=== PATIENT | female | born 1950 | race Two or more races ===

== ENCOUNTER 2016-11-07 17:42 | Emergency (ER) | payer OTHER, MEDICAID ==
[~2016-11-07] VITALS: Ht 160 cm; Wt 89.8 kg
[2016-11-07] MEDS ORDERED: FLUORESCEIN SOD 1 MG TEST STRIP LEFTEYE ONE (19:15)
[2016-11-07] MEDS ORDERED: TETRACAINE HCL 0.5% OPTH(EYE) SOLN 4ML LEFTEYE ONE (19:15)
[2016-11-07 19:32] VITALS: BP 153/73
== END 2016-11-07 19:55 | disposition home or self-care (01) ==
LOC: ER 17:47
DX: H10.9 Unspecified conjunctivitis (principal); E11.9 Type 2 diabetes mellitus without complications; I10 Essential (primary) hypertension; E78.5 Hyperlipidemia, unspecified; M79.7 Fibromyalgia; Z88.1 Allergy status to other antibiotic agents

== ENCOUNTER 2018-05-24 12:58 | Emergency (ER) | payer OTHER, MEDICAID ==
[~2018-05-24] VITALS: Ht 165.1 cm; Wt 82.1 kg
[2018-05-24] MEDS ORDERED: PANTOPRAZOLE 40 MG TAB PO ONE (13:15)
[2018-05-24 13:45] LABS: Urine Bacteria NONE SEEN /hpf (None Seen); Urine Blood Negative /uL (Negative); Urine Mucus FEW (None Seen); Urine WBC 2 /hpf (0 - 5)
[2018-05-24] MEDS ORDERED: LORazepam 2MG/ML-1ML VIAL IV ONE (13:45)
[2018-05-24 13:54] LABS: Basophils # (auto) 0.1 uL; Basophils % (auto) 0.4 % (0.0-2.0); Eosinophils # (auto) 0 uL; Eosinophils % (auto) 0.1 % (0.0-7.0); Hematocrit 41.6 % (36.0-46.0); Hemoglobin 13.8 g/dL (12.2-16.2); Lymphocytes # (auto) 1.2 uL; Lymphocytes % (auto) 9.1 % (10.0-50.0); Mean Corpuscular Hemoglobin 29.9 pg (28.0-32.0); Mean Corpuscular Hgb Conc. 33.2 g/dL (32.0-36.0); Mean Corpuscular Volume 90.1 fL (80.0-100.0); Monocytes # (auto) 0.4 uL; Monocytes % (auto) 2.8 % (0.0-12.0); Neutrophils # (auto) 11.5 uL; Neutrophils % (auto) 87.6 % (37.0-80.0); Platelet Count (auto) 258 10^3/uL (140-450); Red Blood Cells 4.61 10^6/uL (4.0-5.20); Red Cell Distribution Width 13.4 % (11.8-14.3); White Blood Cell 13.1 10^3/uL (4.4-10.8)
[2018-05-24 14:09] LABS: Albumin 3.9 g/dL (3.4-5.0); Amylase 31 U/L (25-115); Anion Gap 8 (5-15); Blood Urea Nitrogen 14 mg/dL (7-18); Calcium 8.5 mg/dL (8.5-10.1); Carbon Dioxide 25 mmol/L (21-32); Chloride 106 mmol/L (98-107); Glucose 184 mg/dL (74-106); Lipase 150 U/L (73-393); Magnesium 1.8 mg/dL (1.6-2.6); Potassium 3.6 mmol/L (3.5-5.1); Sodium 139 mmol/L (136-145)
[2018-05-24 14:10] VITALS: BP 138/73
[2018-05-24 14:15] LABS: Alanine Aminotransferase 35 U/L (13-56); Alkaline Phosphatase 113 U/L (45-117); Aspartate Aminotransferase 21 U/L (15-37); BUN/Creatinine Ratio 17.7; Bilirubin, Total 0.6 mg/dL (0.2-1.0); GFR African American > 60 mL/min; GFR Non-African American > 60 mL/min; Total Protein 7.8 g/dL (6.4-8.2)
[2018-05-24] MEDS ORDERED: metroNIDAZOLE 500MG/100ML 100 ML IV ONE (15:15)
[2018-05-24] MEDS ORDERED: KETOROLAC TROMETH 30 MG/ML 1ML VIAL IV ONE (15:45)
== END 2018-05-24 16:38 | disposition home or self-care (01) ==
LOC: EDBD 12:58 → ER 13:02
DX: K64.9 Unspecified hemorrhoids (principal); E11.9 Type 2 diabetes mellitus without complications; E78.5 Hyperlipidemia, unspecified; I10 Essential (primary) hypertension; Z88.8 Allergy status to other drugs, medicaments and biological substances
CPT/HCPCS: 36415; 74176; 80053; 81001; 82150; 83690; 83735; 84484; 85025; 93005; 96374; 96375; 99284; J1885; J2060; J3490; J7030

== ENCOUNTER 2019-02-10 21:53 | Emergency (ER) | payer OTHER, MEDICAID ==
[~2019-02-10] VITALS: Ht 160 cm; Wt 83.5 kg
[2019-02-11] MEDS ORDERED: TRIAMCINOLONE 40MG/ML 1ML VIAL IM ONE (04:00)
[2019-02-11 04:11] VITALS: BP 154/79
[2019-02-11] MEDS ORDERED: HYDROcodone-ACET 10/325MG TAB PO ONE (04:15)
[2019-02-11] MEDS ORDERED: BACLOFEN 10 MG TAB PO ONE (04:15)
== END 2019-02-11 04:30 | disposition home or self-care (01) ==
LOC: ER 22:03
DX: S33.5XXA Sprain of ligaments of lumbar spine, initial encounter (principal); M54.16 Radiculopathy, lumbar region; E11.9 Type 2 diabetes mellitus without complications; E78.5 Hyperlipidemia, unspecified; I10 Essential (primary) hypertension; Z88.6 Allergy status to analgesic agent; X58.XXXA Exposure to other specified factors, initial encounter; Y93.89 Activity, other specified; Y99.8 Other external cause status; Y92.89 Other specified places as the place of occurrence of the external cause
CPT/HCPCS: 20552; 72100; 99284; J3301

== ENCOUNTER 2023-08-23 20:37 | Inpatient (IN) | payer OTHER, MEDICAID ==
[~2023-08-23] VITALS: Ht 160 cm; Wt 88.5 kg
[2023-08-23 21:59] LABS: Urine Bacteria None Seen /hpf (None Seen)
[2023-08-23 22:14] LABS: Urine Blood Negative /uL (Negative); Urine Clarity Clear (Clear); Urine Color Yellow (Yellow); Urine Mucus FEW (None Seen); Urine Protein, UAD Negative (Negative); Urine Specific Gravity 1.025 (1.001-1.035); Urine Urobilinogen Normal (Negative); Urine WBC 3 /hpf (0 - 5)
[2023-08-24 04:05] LABS: Basophils # (auto) 0 10 ^3/uL (0-0.2); Basophils % (auto) 0.6 % (0.0-2.0); Eosinophils # (auto) 0.2 10 ^3/uL (0-0.8); Eosinophils % (auto) 2.9 % (0.0-7.0); Hematocrit 38.1 % (36.0-46.0); Hemoglobin 12.6 g/dL (12.2-16.2); Lymphocytes # (auto) 2.9 10 ^3/uL (0.4-5.4); Lymphocytes % (auto) 36.9 % (10.0-50.0); Mean Corpuscular Hemoglobin 29.9 pg (28.0-32.0); Mean Corpuscular Hgb Conc. 33.2 g/dL (32.0-36.0); Mean Corpuscular Volume 90.3 fL (80.0-100.0); Monocytes # (auto) 0.5 10 ^3/uL (0-1.3); Monocytes % (auto) 6.7 % (0.0-12.0); Neutrophils # (auto) 4.2 10 ^3/uL (1.6-8.6); Neutrophils % (auto) 52.9 % (37.0-80.0); Nucleated Red Blood Cells % 0.1 %; Red Blood Cells 4.22 10^6/uL (4.0-5.20); Red Cell Distribution Width 13.1 % (11.8-14.3); White Blood Cell 7.9 10^3/uL (4.4-10.8)
[2023-08-24 04:23] LABS: Alanine Aminotransferase 25 U/L (7-40); Albumin 4.3 g/dL (3.2-4.8); Alkaline Phosphatase 98 U/L (46-116); Anion Gap 4 (5-15); Aspartate Aminotransferase 15 U/L (13-40); BUN/Creatinine Ratio 17.1 (10.0-20.0); Bilirubin, Total 0.4 mg/dL (0.2-1.0); Blood Urea Nitrogen 13 mg/dL (9-23); Calcium 9.5 mg/dL (8.7-10.4); Carbon Dioxide 30 mmol/L (20-30); Chloride 105 mmol/L (98-107); Glucose 144 mg/dL (74-106); Potassium 3.6 mmol/L (3.5-5.1); Sodium 139 mmol/L (136-145)
[2023-08-24] MEDS: ONDANSETRON HCL 4 MG/2 ML VIAL IV ONE (07:21)
[2023-08-24] MEDS: SODIUM CHLORIDE 0.9% 500 ML IVB ONE (07:29)
[2023-08-24 08:03] VITALS: RESP 18; O2SAT 98
[2023-08-24] MEDS ORDERED: cefTRIAXone 1GM/50ML D5W 50 ML IV ONE (09:00)
[2023-08-24] MEDS ORDERED: MORPHINE SULFATE INJ 2 MG/ml SYRG IV PRN (09:00)
[2023-08-24] MEDS ORDERED: ONDANSETRON HCL 4 MG/2 ML VIAL IV PRN (09:00)
[2023-08-24] MEDS: metroNIDAZOLE 500MG/100ML 100 ML IV ONE (09:00)
[2023-08-24] MEDS: SODIUM CHLORIDE 0.9% 1,000 ML IV SCH (09:00)
[2023-08-24] MEDS ORDERED: DEXTROSE (50%) 50ML SYRG IV PRN (09:00)
[2023-08-24] MEDS ORDERED: DOCUSATE SOD 100 MG CAP PO PRN (09:00)
[2023-08-24] MEDS: PANTOPRAZOLE 40 MG/10 ML VIAL INJ IV ONE (09:00)
[2023-08-24 09:54] LABS: Hematocrit 37.5 % (36.0-46.0); Hemoglobin 12.4 g/dL (12.2-16.2)
[2023-08-24 11:02] LABS: Prothrombin Time 10.5 sec (9.3-11.8)
[2023-08-24] MEDS: InsuLIN REG 1unit/0.01ml Soln (100units/ml) SC SCH (12:00)
[2023-08-24] MEDS: ACCU-CHEK COMFORT CURVE STRIP VI SCH (12:00)
[2023-08-24 20:00] VITALS: BP 142/78; PULSE 78; PULSE 89; RESP 20; TEMP 98.8; O2SAT 98
[2023-08-24 21:00] VITALS: BP 143/67; PULSE 73; RESP 18; TEMP 97.7; O2SAT 97
[2023-08-24] MEDS: metroNIDAZOLE 500MG/100ML 100 ML IV SCH (21:40)
[2023-08-24 22:32] LABS: Hematocrit 36.8 % (36.0-46.0)
[2023-08-24] MEDS: cefTRIAXone 1GM/50ML D5W 50 ML IV SCH (23:08)
[2023-08-25] VITALS (8 sets, daily range): BP systolic 107–135; BP diastolic 60–71; PULSE 67–87; RESP 16–17; TEMP 97.5–98.4; O2SAT 92–98
[2023-08-25 05:49] LABS: Basophils # (auto) 0 10 ^3/uL (0-0.2); Basophils % (auto) 0.7 % (0.0-2.0); Eosinophils # (auto) 0.2 10 ^3/uL (0-0.8); Eosinophils % (auto) 3.2 % (0.0-7.0); Hematocrit 34.7 % (36.0-46.0); Hemoglobin 11.5 g/dL (12.2-16.2); Lymphocytes # (auto) 2.4 10 ^3/uL (0.4-5.4); Lymphocytes % (auto) 35.6 % (10.0-50.0); Mean Corpuscular Volume 90.8 fL (80.0-100.0); Monocytes # (auto) 0.6 10 ^3/uL (0-1.3); Monocytes % (auto) 8.6 % (0.0-12.0); Neutrophils # (auto) 3.6 10 ^3/uL (1.6-8.6); Neutrophils % (auto) 51.9 % (37.0-80.0); Nucleated Red Blood Cells % 0.1 %; Red Blood Cells 3.82 10^6/uL (4.0-5.20); White Blood Cell 6.8 10^3/uL (4.4-10.8)
[2023-08-25 06:08] LABS: Alanine Aminotransferase 22 U/L (7-40); Alkaline Phosphatase 79 U/L (46-116); Anion Gap 6 (5-15); Blood Urea Nitrogen 8 mg/dL (9-23); Calcium 8.9 mg/dL (8.7-10.4); Carbon Dioxide 28 mmol/L (20-30); Chloride 109 mmol/L (98-107); Glucose 102 mg/dL (74-106); Potassium 3.7 mmol/L (3.5-5.1); Sodium 143 mmol/L (136-145)
[2023-08-25 06:09] LABS: Albumin 3.4 g/dL (3.2-4.8); Aspartate Aminotransferase 16 U/L (13-40)
[2023-08-25 06:10] LABS: Bilirubin, Total 0.4 mg/dL (0.2-1.0); Total Protein 5.8 g/dL (5.7-8.2)
[2023-08-25] MEDS: PANTOPRAZOLE 40 MG/10 ML VIAL INJ IV SCH (09:05)
[2023-08-25 10:29] LABS: Hematocrit 35.5 % (36.0-46.0); Hemoglobin 11.7 g/dL (12.2-16.2)
[2023-08-25] MEDS ORDERED: ACETAMINOPHEN 325 MG TAB PO PRN (14:30)
[2023-08-25] MEDS: InsuLIN REG 1unit/0.01ml Soln (100units/ml) SC SCH (17:00)
[2023-08-25] MEDS: ACCU-CHEK COMFORT CURVE STRIP VI SCH (17:49)
[2023-08-25 22:19] LABS: Hemoglobin 8.8 g/dL (12.2-16.2)
[2023-08-25 22:21] LABS: Hematocrit 29.6 % (36.0-46.0)
[2023-08-26 05:00] VITALS: BP 149/68; PULSE 65; RESP 17; TEMP 98; O2SAT 94
[2023-08-26 06:42] LABS: Basophils # (auto) 0 10 ^3/uL (0-0.2); Basophils % (auto) 0.7 % (0.0-2.0); Eosinophils # (auto) 0.2 10 ^3/uL (0-0.8); Eosinophils % (auto) 3.2 % (0.0-7.0); Hematocrit 33.9 % (36.0-46.0); Hemoglobin 11.3 g/dL (12.2-16.2); Lymphocytes # (auto) 2.2 10 ^3/uL (0.4-5.4); Lymphocytes % (auto) 37.4 % (10.0-50.0); Mean Corpuscular Hemoglobin 30.1 pg (28.0-32.0); Mean Corpuscular Hgb Conc. 33.3 g/dL (32.0-36.0); Mean Corpuscular Volume 90.6 fL (80.0-100.0); Monocytes # (auto) 0.6 10 ^3/uL (0-1.3); Monocytes % (auto) 10.7 % (0.0-12.0); Neutrophils # (auto) 2.8 10 ^3/uL (1.6-8.6); Nucleated Red Blood Cells % 0.3 %; Red Blood Cells 3.74 10^6/uL (4.0-5.20); Red Cell Distribution Width 13.4 % (11.8-14.3); White Blood Cell 5.9 10^3/uL (4.4-10.8)
[2023-08-26 06:48] LABS: Alanine Aminotransferase 20 U/L (7-40); Albumin 3.4 g/dL (3.2-4.8); Alkaline Phosphatase 68 U/L (46-116); Anion Gap 5 (5-15); Aspartate Aminotransferase 16 U/L (13-40); Bilirubin, Total 0.6 mg/dL (0.2-1.0); Calcium 8.9 mg/dL (8.7-10.4); Carbon Dioxide 30 mmol/L (20-30); Chloride 109 mmol/L (98-107); Glucose 112 mg/dL (74-106); Magnesium 1.8 mg/dL (1.6-2.6); Potassium 3.8 mmol/L (3.5-5.1); Sodium 144 mmol/L (136-145); Total Protein 5.6 g/dL (5.7-8.2)
[2023-08-26 06:55] LABS: BUN/Creatinine Ratio 8.5 (10.0-20.0); Blood Urea Nitrogen < 5 mg/dL (9-23)
[2023-08-26 08:05] VITALS: BP 141/61; PULSE 65; RESP 18; TEMP 98.2; O2SAT 95
[2023-08-26] MEDS ORDERED: METR-344 PO (12:02)
[2023-08-26] MEDS ORDERED: CIPR-173 PO (12:02)
[2023-08-26 12:05] VITALS: BP 120/69; PULSE 69; RESP 18; TEMP 98.3; O2SAT 97
== END 2023-08-26 15:37 | disposition home or self-care (01) | DRG 378 ==
LOC: ER 20:37 → OVERFLOW 08-24 10:25 → TELE-E-ADS 08-24 14:35 → WEST WING 08-24 18:39
PROVIDERS: ADMIT Nurse Practitioner Family; ATTEND Internal Medicine Geriatric Medicine
DX: K57.31 Diverticulosis of large intestine without perforation or abscess with bleeding (principal); N39.0 Urinary tract infection, site not specified; E11.65 Type 2 diabetes mellitus with hyperglycemia; I10 Essential (primary) hypertension; K80.20 Calculus of gallbladder without cholecystitis without obstruction; K40.90 Unilateral inguinal hernia, without obstruction or gangrene, not specified as recurrent; E78.5 Hyperlipidemia, unspecified; K21.9 Gastro-esophageal reflux disease without esophagitis; F41.9 Anxiety disorder, unspecified; Z88.1 Allergy status to other antibiotic agents; Z79.899 Other long term (current) drug therapy; Z83.3 Family history of diabetes mellitus
CPT/HCPCS: 36415; 74176; 80053; 81001; 82962; 83735; 85014; 85018; 85025; 85610; 86850; 86900; 86901; 87086; 96360; C9113; G0378; J1815; J3490

== ENCOUNTER 2025-01-31 16:31 | Inpatient (IN) | payer MEDICARE, MEDICAID ==
[~2025-01-31] VITALS: Ht 160 cm; Wt 83.4 kg
[~2025-01-31 16:31] MED LIST: ALBU108A5 INH; CETI-120 PO; CIPR-173 PO; EZET1TAB90 PO; FLUT50SP NAS; LANS30CA58 PO; LISI10TA34 PO; METR-344 PO; NABU-72 PO; SEMA2INJ3 SC; TIMO0.5S32 EACHEYE
[2025-01-31 16:45] VITALS: PULSE 68; RESP 15; O2SAT 98
--- NOTE | 2025-01-31 16:49 | ED.PDOC ---
GI ASSESSMENT HPI Comments Discharge summary from 08/26/23 Abdominal pain and rectal bleeding most likely due to diverticulosis Hypertension Type 2 diabetes GERD History of diverticulosis HPI: 74 year old female presents to the ED with a chief complaint of abdominal pain onset today (01/31/25). Patient states she came to ED to visit her son, who is admitted to [facility], began experiencing suprapubic pain, described as a "bubbling" sensation. Patient states she went to restroom, had a bowel movement, shortly after began experiencing nausea, had small episode of emesis. Patient was hypotensive with BP 80s systolic, blood glucose was 225. Patient states she has history of Diverticulitis, pain does not feel similar to previous episodes. During assessment BP has improved. Denies chest pain, shortness of breath, dysuria, hematuria, hematemesis, melena, blood in stool, fever, chills. No other symptoms or modifying factors present at this time. Initial Vitals BP: HR: RR: O2 Sat: Temp: Past Medical history: HTN, DM, diverticulitis, GERD, HLD Past Surgical history: Salivary gland removal Medications: ozempic Social History: Denies smoking, ETOH, and drug use. Allergies: Keflex, cephalexin palmer, haily: 74 y/o F HPI: Poor Historian. REVIEW OF SYSTEMS: CONSTITUTIONAL: Denies acute: fever, diaphoresis, chills, HEAD: Denies acute: headache, photophobia Eyes: Denies acute: Double vision, vision loss, eye pain, eye discharge. EARS: Denies acute: tinnitus, hearing loss, ear discharge, ear pain, THROAT: Denies acute: sore throat, swelling, difficulty swallowing , pain with swallowing, change in voice. NECK: Denies acute: neck pain, neck swelling, stiff neck. HEART: Denies acute : chest pain, palpitations, LUNGS: Denies acute: SOB, wheezing, cough, hemoptysis ABDOMEN: Denies acute: diarrhea, melena , hematemesis, hematochezia SKIN: Denies acute: rash, redness, lesions, itchiness. EXTREMITIES: Denies acute: calf pain, numbness, tingling, weakness, denies pain in extremity. Denies acute: Low back pain. Neuro: Denies acute: focal neurological deficit, motor or sensory focal neurological deficit, tremors, seizure like activity, confusion, dizziness, change in mental status, loss of bowel or bladder function, cauda equina like symptoms. : Denies acute: dysuria, hematuria, flank pain, increase in urinary frequency. PSYCH: Denies acute: hallucination, suicidal ideation, homicidal ideation. FEMALE: Denies acute: abnormal vaginal bleeding, foul odor, unusual discharge. PHYSICAL EXAM: General: ----moderate----acute distress, awake and alert. Slightly diaphoretic Blood pressure has already improved by the time of my evaluation. Head: normocephalic, atraumatic. Neck: supple, trachea is midline, no swelling. Throat: Normal phonation. Eyes:, no erythema, no purulent discharge, no proptosis, no icterus. Heart: regular rate, regular rhythm, no significant murmur appreciated. Lungs: no apparent respiratory distress, Able to speak in full sentences. No wheezing, no rhonchi, no crackles. No stridors Clear to auscultation bilaterally. Abdomen: non tender to palpation, non distended, soft, no guarding, no rebound, + bowel sounds. Neuro: Awake, Alert, oriented to name, self, situation, follows commands GCS=15. Speech is normal. Skin: no petechia, no purpura, no cyanosis, non-pale, not jaundice. Lower extremities: --trace bilateral- Pitting edema no deformity, no focal swelling, no calf TTP. Makes eye contact. moves all four extremities. Face: no apparent facial droop. No nuchal rigidity, Kernig's sign, Brudzinski's sign, no meningeal signs. ED COURSE: DISCLAIMER: This medical document was created using an electronic medical record system with voice recognition software and computerized dictation system. Although this document has been carefully reviewed, there might still be some phonetic and typographical errors. Occasional wrong-word or "sound-alike" substitutions may have occurred due to the inherent limitations of voice recognition software. These areas are purely typographical due to imperfections of the software programs and do not reflect any compromise in the patient's medical care. Please read the chart carefully and recognize, using context, where these substitutions have occurred. Chief Complaint: Abdominal Pain Time Seen by MD: 16:40 Primary Care Provider: alfred Reviewed Notes: Medications, Allergies Allergies: Coded Allergies: Cephalexin (Verified Allergy, Unknown, NAUSEA VOMITING, 08/24/23) Home Meds Active Scripts Ciprofloxacin Hcl (Cipro) 500 Mg Tab, 1 TAB PO BID, #20 TAB Prov:DEMETRICE CHAN MD 08/26/23 Metronidazole (Flagyl) 500 Mg Tab, 500 MG PO TID for 10 Days, #30 TAB Prov:DEMETRICE CHAN MD 08/26/23 Information Source: Patient Mode of Arrival: Ambulatory Timing: Hours Duration: Since onset Prehospital treatment: None Past Medical History PAST MEDICAL HISTORY: DM, High Lipids, HTN Surgical History: Denies all surgeries 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 Was a procedure done?: No X-Ray, Labs, Meds, VS Vital Signs Date Time Temp Pulse Resp B/P (MAP) Pulse Ox O2 Delivery O2 Flow Rate FiO2 01/31/25 16:32 98.6 72 18 89/46 99 98.6 01/31/25 16:31 71 Lab Test 01/31/25 17:35 01/31/25 16:33 Range/Units White Blood Count 11.0 H 4.4-10.8 10^3/uL Red Blood Count 4.51 4.0-5.20 10^6/uL Hemoglobin 13.9 12.2-16.2 g/dL Hematocrit 42.0 36.0-46.0 % Mean Corpuscular Volume 93.2 80.0-100.0 fL Mean Corpuscular Hemoglobin 30.9 28.0-32.0 pg Mean Corpuscular Hemoglobin Concent 33.1 32.0-36.0 g/dL Red Cell Distribution Width 12.7 11.8-14.3 % Platelet Count 261 140-450 10^3/uL Mean Platelet Volume 8.0 6.9-10.8 fL Neutrophils (%) (Auto) 74.5 37.0-80.0 % Lymphocytes (%) (Auto) 19.0 10.0-50.0 % Monocytes (%) (Auto) 5.5 0.0-12.0 % Eosinophils (%) (Auto) 0.5 0.0-7.0 % Basophils (%) (Auto) 0.5 0.0-2.0 % Neutrophils # (Auto) 8.2 1.6-8.6 10 ^3/uL Lymphocytes # (Auto) 2.1 0.4-5.4 10 ^3/uL Monocytes # (Auto) 0.6 0-1.3 10 ^3/uL Eosinophils # (Auto) 0.1 0-0.8 10 ^3/uL Basophils # (Auto) 0.1 0-0.2 10 ^3/uL Nucleated Red Blood Cells 0.1 % Sodium Level Pending Potassium Level Pending Chloride Level Pending Carbon Dioxide Level Pending Anion Gap Pending Blood Urea Nitrogen Pending Creatinine Pending Glomerular Filtration Rate Calc Pending BUN/Creatinine Ratio Pending Serum Glucose Pending Lactic Acid Level Pending Calcium Level Pending Total Bilirubin Pending Aspartate Amino Transferase (AST) Pending Alanine Aminotransferase (ALT) Pending Alkaline Phosphatase Pending Troponin I High Sensitivity Pending B-Type Natriuretic Peptide Pending Total Protein Pending Albumin Pending Lipase Pending Urine Color Light-yellow Yellow Urine Clarity Clear Clear Urine pH 6.5 5.0-9.0 Urine Specific Superior 1.016 1.001-1.035 Urine Protein Trace H Negative Urine Ketones Negative Negative Urine Blood Negative Negative /uL Urine Nitrite Negative Negative Urine Bilirubin Negative Negative Urine Urobilinogen Normal Negative mg/dL Urine Leukocyte Esterase Negative Negative /uL Urine RBC <1 0 - 4 /hpf Urine Microscopic WBC 5 0-5 /HPF Urine Squamous Epithelial Cells Few <5 /hpf Urine Bacteria None seen None Seen /hpf Urine Yeast (Budding) Occasional None Seen /hpf Urine Glucose Normal Normal mg/dL Current Medications Medications (Trade) Dose Ordered Sig/Griselda Route Start Time Stop Time Status Last Admin Sodium Chloride 1,000 ml @ 1,000 mls/hr Q1H ONCE IV 01/31/25 16:45 01/31/25 17:44 DC 01/31/25 17:51 Ondansetron HCl (Zofran) 8 mg ONCE ONCE IV 01/31/25 16:45 01/31/25 16:46 DC 01/31/25 17:51 [facility] [place] [address] [facility] [address] Ph: [phone] DIAGNOSTIC IMAGING Diagnostic Imaging Report : [id number] Signed PATIENT: HAILY PALMER ACCT: [id number] UNIT: [id number] : 1950 LOC: ER ROOM / BED: / AGE / SEX: 74 / F ADM STATUS: REG ER SERVICE [id number] ORDERING PHYSICIAN: SHEREE BLANCA DO PROCEDURE(s): ABPL - CT AB PEL WO CON-NO ORAL OR IV REASON: n/v/abd pain low BP ORDER NUMBER(s): [id number], ACCESSION NUMBER(s): [id number] COMPUTERIZED TOMOGRAPHY ABDOMEN AND PELVIS WITHOUT CONTRAST REASON FOR EXAM: n/v/abd pain low BP COMPARISON: CT CT AB PEL WO CON-NO ORAL OR IV on DOS: 08/24/23 TECHNIQUE: Spiral scans were acquired from the diaphragm to the symphysis pubis without intravenous contrast administration. 2-D coronal and sagittal reformatted images were provided. Radiation optimization: All CT scans at this facility use at least one of these dose optimization techniques: Automated exposure control mA and/or kV adjustment per patient size (includes targeted exams where dose is matched to clinical indication) or iterative reconstruction. RADIATION DOSE: CTDI: 13.17 mGy DLP: 662.47 mGy-cm FINDINGS: The visualized lung bases are grossly clear. There is no pleural effusion. There is no pericardial effusion. The spleen is not enlarged. The liver is normal in size and contour. Evaluation of the abdominal organs is suboptimal in the absence of intravenous contrast. There are a few small gallstones. There is no pericholecystic edema. Unenhanced appearance of the pancreas is grossly unremarkable. There is a small diverticulum off the 2nd part of the duodenum. The adrenal glands are normal. The kidneys are similar in size. There is no hydronephrosis of either kidney. There is no abdominal aortic aneurysm. There is moderate atherosclerosis. The urinary bladder is unremarkable. The uterus and ovaries are within normal limits for age. No free fluid is identified in the abdomen or pelvis. No pathologic lymphadenopathy is identified by size criteria. There is moderate descending and sigmoid diverticulosis. There is subtle inflammatory stranding adjacent to the distal descending colon consistent with acute diverticulitis. The colonic stool burden is small. The appendix is normal. There is no pathologic distention of the small bowel. No acute osseous abnormality is identified. There are degenerative changes in the lower lumbar spine. IMPRESSION: Acute diverticulitis at the distal descending colon. Normal appendix. ATED BY: DEMETRI OATES MD DICTATED DATE/TIME: 01/31/251753 SIGNED BY: DEMETRI OATES MD SIGNED DATE/TIME: 01/31/251753 CC: Time of 1ST Reevaluation: 17:10 Departure 1 Departure Time of Disposition: 18:07 Impression: Primary Impression: Acute diverticulitis Additional Impression: Hypotensive episode Disposition: ADMITTED INPATIENT Admit to: [facility] Condition: Guarded Discharged With: Self Critical Care Note Critical Care Time?: No I personally scribed for SHEREE BLANCA DO ([email or web address]) on 01/31/25 at 16:49. Electronically submitted by Malou Noyola ([email or web address]). I personally scribed for SHEREE BLANCA DO ([email or web address]) on 01/31/25 at 16:52. Electronically submitted by Malou Noyola ([email or web address]). I personally scribed for SHEREE BLANCA DO ([email or web address]) on 01/31/25 at 18:31. Electronically submitted by Malou Noyola ([email or web address]). SHEREE BLANCA DO Jan 31, 2025 16:49
--- NOTE | 2025-01-31 17:27 | ECG ---
[facility] Test Date: 2025-01-31 Test Time: 16:15:34 Pat Name: ZAY EMERSON Department: [facility] ED Patient ID: [id number] Room: Gender: F [employer] And [employer] Technician: DIANE : 1950 Requested By: SHEREE BLANCA Order Number: [id number] Reading MD: Measurements Intervals Durand Rate: 71 P: 75 SC: 170 QRS: 79 QRSD: 101 T: 57 QT: 382 QTc: 416 Interpretive Statements Sinus rhythm Probable anterolateral infarct, old Baseline wander in lead(s) V1,V5 Please click the below link to view image of tracing.
[2025-01-31] MEDS: ONDANSETRON HCL 4 MG/2 ML VIAL IV ONE (17:51)
[2025-01-31] MEDS: SODIUM CHLORIDE 0.9% 1,000 ML IV ONE (17:51)
--- NOTE | 2025-01-31 17:56 | DVH ---
COMPUTERIZED TOMOGRAPHY ABDOMEN AND PELVIS WITHOUT CONTRAST REASON FOR EXAM: n/v/abd pain low BP COMPARISON: CT CT AB PEL WO CON-NO ORAL OR IV on DOS: 08/24/23 TECHNIQUE: Spiral scans were acquired from the diaphragm to the symphysis pubis without intravenous c ontrast administration. 2-D coronal and sagittal reformatted images were provided. Radiation optimiza tion: All CT scans at this facility use at least one of these dose optimization techniques: Automated exposure control mA and/or kV adjustment per patient size (includes targeted exams where dose is mat ched to clinical indication) or iterative reconstruction. RADIATION DOSE: CTDI: 13.17 mGy DLP: 662.47 mGy-cm FINDINGS: The visualized lung bases are grossly clear. There is no pleural effusion. There is no pericardial effusion. The spleen is not enlarged. The liver is normal in size and contour. Evaluation of the abdominal org ans is suboptimal in the absence of intravenous contrast. There are a few small gallstones. There is no pericholecystic edema. Unenhanced appearance of the pancreas is grossly unremarkable. There is a small diverticulum off the 2nd part of the duodenum. The adrenal glands are normal. The kidneys are s imilar in size. There is no hydronephrosis of either kidney. There is no abdominal aortic aneurysm. There is moderate atherosclerosis. The urinary bladder is unremarkable. The uterus and ovaries are w ithin normal limits for age. No free fluid is identified in the abdomen or pelvis. No pathologic lym phadenopathy is identified by size criteria. There is moderate descending and sigmoid diverticulosis. There is subtle inflammatory stranding adjacent to the distal descending colon consistent with acute diverticulitis. The colonic stool burden is small. The appendix is normal. There is no pathologic distention of the small bowel. No acute osseous abnormality is identified. There are degenerative darius nges in the lower lumbar spine. IMPRESSION: Acute diverticulitis at the distal descending colon. Normal appendix.
[2025-01-31 18:15] LABS: Hematocrit 42.0 % (36.0-46.0); Hemoglobin 13.9 g/dL (12.2-16.2); Mean Corpuscular Hemoglobin 30.9 pg (28.0-32.0); Mean Corpuscular Volume 93.2 fL (80.0-100.0); Nucleated Red Blood Cells % 0.1 %
[2025-01-31 18:21] LABS: Urine Budding Yeast OCCASIONAL /hpf (None Seen); Urine Protein, UAD TRACE (Negative)
[2025-01-31 18:26] LABS: Albumin 4.2 g/dL (3.2-4.8); Alkaline Phosphatase 102 U/L (46-116); Anion Gap 12 (5-15); BUN/Creatinine Ratio 23.1 (10.0-20.0); Blood Urea Nitrogen 18 mg/dL (9-23); Calcium 9.1 mg/dL (8.7-10.4); Carbon Dioxide 24 mmol/L (20-31); Chloride 105 mmol/L (98-107); Potassium 3.6 mmol/L (3.5-5.1); Sodium 141 mmol/L (136-145); Total Protein 6.6 g/dL (5.7-8.2)
[2025-01-31 18:36] LABS: Alanine Aminotransferase 45 U/L (7-40); Bilirubin, Total 1.3 mg/dL (0.2-1.0); Glucose 196 mg/dL (74-106); Lipase 53 U/L (12-53)
[2025-01-31] MEDS: CIPROFLOXACIN 400MG/200ML 200 ML IV ONE (19:30)
[2025-01-31] MEDS: fentaNYL CITRATE 100 MCG/2 ML VL IV ONE (19:30)
[2025-01-31 19:57] VITALS: PULSE 68; RESP 11; O2SAT 98
[2025-01-31] MEDS ORDERED: ALBUTEROL SULF 2.5 MG/0.5ML(0.5%) NEB SOLN NEB PRN (20:30)
[2025-01-31] MEDS ORDERED: hydrALAZINE HCL 20 MG/ML VL IV PRN (20:30)
[2025-01-31] MEDS ORDERED: DEXTROSE (50%) 50ML SYRG IV PRN (20:30)
[2025-01-31 20:48] VITALS: O2SAT 96
[2025-01-31 20:49] VITALS: O2SAT 96
[2025-01-31 20:50] VITALS: BP 145/64; PULSE 70; RESP 14; TEMP 98.3; O2SAT 96
[2025-01-31 21:56] VITALS: BP 134/64; PULSE 68; RESP 17; TEMP 98; O2SAT 99
[2025-01-31] MEDS: PANTOPRAZOLE 40 MG/10 ML VIAL INJ IV ONE (22:04)
[2025-01-31] MEDS: ONDANSETRON HCL 4 MG/2 ML VIAL IV PRN (22:04)
[2025-01-31] MEDS: HYDROcodone-ACET 5/325MG TAB PO PRN (22:05)
[2025-01-31] MEDS: ACCU-CHEK COMFORT CURVE STRIP VI SCH (22:57)
[2025-01-31] MEDS: InsuLIN REG 1unit/0.01ml Soln (100units/ml) SC SCH (22:58)
[2025-02-01] VITALS (10 sets, daily range): BP systolic 111–126; BP diastolic 54–70; PULSE 63–74; RESP 16–18; TEMP 96.3–98; O2SAT 92–98
--- NOTE | 2025-02-01 00:58 | DVHHP2 ---
History of Present Illness Reason for Visit: Abdominal pain History of Present Illness 74-year-old female presents for evaluation of abdominal pain. Patient endorses diffuse abdominal pain with associated nausea and vomiting. Denies diarrhea. No fever or chills. No other acute complaints. Past Medical History Diabetes mellitus, hypertension, GERD, diverticulitis Past Surgical History Denies Family History Noncontributory Smoke: No ALCOHOL: none Drugs: None Lives: with Family Review of Systems Review of Systems Review of systems are currently negative otherwise addressed in HPI. Allergies: Coded Allergies: Cephalexin (Verified Allergy, Unknown, NAUSEA VOMITING, 08/24/23) Medications Current Medications Medications Dose Ordered Sig/Griselda Route Start Time Stop Time Status Last Admin Dose Admin Levofloxacin/ Dextrose 100 ml @ 100 mls/hr DAILY IV 02/01/25 10:00 Metronidazole 100 ml @ 100 mls/hr Q8HR IV 02/01/25 06:00 Lisinopril 10 mg DAILY PO 02/01/25 10:00 Albuterol 2.5 mg Q6HPRN PRN NEB 01/31/25 20:30 Pantoprazole Sodium 40 mg DAILY IV 02/01/25 10:00 Hydralazine HCl 10 mg Q6HP PRN IV 01/31/25 20:30 Diagnostic Test (Pha) 1 strip Q6HR 02/01/25 00:00 01/31/25 22:57 1 STRIP Insulin Human Regular Q6HR SC 02/01/25 00:00 01/31/25 22:58 3 UNITS Dextrose 50 ml UD PRN IV 01/31/25 20:30 Acetaminophen/ Hydrocodone Bitart 1 tab Q4HP PRN PO 01/31/25 20:30 01/31/25 22:05 1 TAB Ondansetron HCl 4 mg Q4HP PRN IV 01/31/25 20:30 01/31/25 22:04 4 MG Acetaminophen 650 mg Q6HP PRN PO 01/31/25 20:30 Exam Vital Signs Vital Signs Date Time Temp Pulse Resp B/P (MAP) Pulse Ox O2 Delivery O2 Flow Rate FiO2 01/31/25 21:56 68 17 99 Room Air* 0 21 01/31/25 21:56 98.0 134/64 (87) 98.0 Exam Gen: 74-year-old female in mild distress. Skin: Warm, dry, normal color and texture, no rash. HEENT: Normocephalic atraumatic, mucous membranes moist and pink. Neck: Cervical and supraclavicular nodes normal without enlargement, trachea is midline, thyroid gland is normal without masses. Pulmonary: Clear to auscultation and percussion bilaterally. Cardiac: Regular rate and rhythm. No murmur Abdomen: Soft, diffuse tenderness, nondistended, bowel sounds present all 4 quadrants, no guarding, no rigidity, no organomegaly. Extremities: No cyanosis, clubbing, no edema Neuro: Cranial nerves II through XII grossly intact, normal affect and speech, no focal motor deficits. Labs/Xrays ORDERING PHYSICIAN: SHEREE BLANCA DO PROCEDURE(s): ABPL - CT AB PEL WO CON-NO ORAL OR IV REASON: n/v/abd pain low BP ORDER NUMBER(s): [id number], ACCESSION NUMBER(s): [id number] COMPUTERIZED TOMOGRAPHY ABDOMEN AND PELVIS WITHOUT CONTRAST REASON FOR EXAM: n/v/abd pain low BP COMPARISON: CT CT AB PEL WO CON-NO ORAL OR IV on DOS: 08/24/23 TECHNIQUE: Spiral scans were acquired from the diaphragm to the symphysis pubis without intravenous contrast administration. 2-D coronal and sagittal reformatted images were provided. Radiation optimization: All CT scans at this facility use at least one of these dose optimization techniques: Automated exposure control mA and/or kV adjustment per patient size (includes targeted exams where dose is matched to clinical indication) or iterative reconstruction. RADIATION DOSE: CTDI: 13.17 mGy DLP: 662.47 mGy-cm FINDINGS: The visualized lung bases are grossly clear. There is no pleural effusion. There is no pericardial effusion. The spleen is not enlarged. The liver is normal in size and contour. Evaluation of the abdominal organs is suboptimal in the absence of intravenous contrast. There are a few small gallstones. There is no pericholecystic edema. Unenhanced appearance of the pancreas is grossly unremarkable. There is a small diverticulum off the 2nd part of the duodenum. The adrenal glands are normal. The kidneys are similar in size. There is no hydronephrosis of either kidney. There is no abdominal aortic aneurysm. There is moderate atherosclerosis. The urinary bladder is unremarkable. The uterus and ovaries are within normal limits for age. No free fluid is identified in the abdomen or pelvis. No pathologic lymphadenopathy is identified by size criteria. There is moderate descending and sigmoid diverticulosis. There is subtle inflammatory stranding adjacent to the distal descending colon consistent with acute diverticulitis. The colonic stool burden is small. The appendix is normal. There is no pathologic distention of the small bowel. No acute osseous abnormality is identified. There are degenerative changes in the lower lumbar spine. IMPRESSION: Acute diverticulitis at the distal descending colon. Normal appendix. Labs Test 01/31/25 22:46 01/31/25 19:03 01/31/25 18:52 01/31/25 17:35 Range/Units POC Glucose 169 H 70-106 mg/dl Stool Occult Blood Positive Negative Stool Occult Blood Sample #3 Negative Troponin I High Sensitivity 3 L </=34 ng/L White Blood Count 11.0 H 4.4-10.8 10^3/uL Red Blood Count 4.51 4.0-5.20 10^6/uL Hemoglobin 13.9 12.2-16.2 g/dL Hematocrit 42.0 36.0-46.0 % Mean Corpuscular Volume 93.2 80.0-100.0 fL Mean Corpuscular Hemoglobin 30.9 28.0-32.0 pg Mean Corpuscular Hemoglobin Concent 33.1 32.0-36.0 g/dL Red Cell Distribution Width 12.7 11.8-14.3 % Platelet Count 261 140-450 10^3/uL Mean Platelet Volume 8.0 6.9-10.8 fL Neutrophils (%) (Auto) 74.5 37.0-80.0 % Lymphocytes (%) (Auto) 19.0 10.0-50.0 % Monocytes (%) (Auto) 5.5 0.0-12.0 % Eosinophils (%) (Auto) 0.5 0.0-7.0 % Basophils (%) (Auto) 0.5 0.0-2.0 % Neutrophils # (Auto) 8.2 1.6-8.6 10 ^3/uL Lymphocytes # (Auto) 2.1 0.4-5.4 10 ^3/uL Monocytes # (Auto) 0.6 0-1.3 10 ^3/uL Eosinophils # (Auto) 0.1 0-0.8 10 ^3/uL Basophils # (Auto) 0.1 0-0.2 10 ^3/uL Nucleated Red Blood Cells 0.1 % Sodium Level 141 136-145 mmol/L Potassium Level 3.6 3.5-5.1 mmol/L Chloride Level 105 98-107 mmol/L Carbon Dioxide Level 24 20-31 mmol/L Anion Gap 12 5-15 Blood Urea Nitrogen 18 9-23 mg/dL Creatinine 0.78 0.550-1.02 mg/dL Glomerular Filtration Rate Calc 80 >90 mL/min BUN/Creatinine Ratio 23.1 H 10.0-20.0 Serum Glucose 196 H 74-106 mg/dL Lactic Acid Level 1.9 0.4-2.0 mmol/L Calcium Level 9.1 8.7-10.4 mg/dL Total Bilirubin 1.3 H 0.2-1.0 mg/dL Aspartate Amino Transferase (AST) 33 13-40 U/L Alanine Aminotransferase (ALT) 45 H 7-40 U/L Alkaline Phosphatase 102 46-116 U/L B-Type Natriuretic Peptide 8.93 0-100 pg/mL Total Protein 6.6 5.7-8.2 g/dL Albumin 4.2 3.2-4.8 g/dL Lipase 53 12-53 U/L Test 01/31/25 16:33 Range/Units Urine Color Light-yellow Yellow Urine Clarity Clear Clear Urine pH 6.5 5.0-9.0 Urine Specific [place] 1.016 1.001-1.035 Urine Protein Trace H Negative Urine Ketones Negative Negative Urine Blood Negative Negative /uL Urine Nitrite Negative Negative Urine Bilirubin Negative Negative Urine Urobilinogen Normal Negative mg/dL Urine Leukocyte Esterase Negative Negative /uL Urine RBC <1 0 - 4 /hpf Urine Microscopic WBC 5 0-5 /HPF Urine Squamous Epithelial Cells Few <5 /hpf Urine Bacteria None seen None Seen /hpf Urine Yeast (Budding) Occasional None Seen /hpf Urine Glucose Normal Normal mg/dL SEPSIS Sepsis Screen Date sepsis recognized/suspect: Jan 31, 2025 Time Sepsis recognized/suspect: 1956 Recent Procedure: No On Antibiotic Therapy: Yes Respiratory Rate >20: No Heart Rate >90: No Temp<36 C (96.8 F) or >38.3 C: No SBP <90 or MAP <65 mmHG: No New Acute Mental Status Change: No Is the patient on CPAP, BIPAP,: No Physician Orders Admit (01/31/25 19:56) Levofloxacin 500mg (Levaquin 500mg/ 100m (02/01/25 10:00) Lisinopril Tablet (Zestril Tablet) (02/01/25 10:00) Albuterol Medneb (Ventolin Medneb) (01/31/25 20:30) * [facility] Drafter (Cad) Electronic (01/31/25 20:28) Basic Metabolic Panel (02/01/25 04:00) Pantoprazole (Protonix) (02/01/25 10:00) Hydralazine Injection (Apresoline Inject (01/31/25 20:30) Glucose Blood (Accu-Chek Comfort Curve T (02/01/25 00:00) Insulin R (Human) (Insulin R) (02/01/25 00:00) Dextrose 50% Syringe (01/31/25 20:30) Hydrocodone-Acet 5/325mg Tab ([place] 5/32 (01/31/25 20:30) Ondansetron Hcl (Zofran) (01/31/25 20:30) Complete Blood Count (02/01/25 04:00) Condition: Stable (01/31/25 20:28) Acetaminophen Tablet (Tylenol Tablet) (01/31/25 20:30) Clear Liq Diet (02/01/25 Breakfast) Bedrest With Bathroom Privileg (01/31/25 20:28) Metronidazole 500mg/100ml (Flagyl 500mg/ (02/01/25 06:00) Vital Signs Date Time Temp Pulse Resp B/P (MAP) Pulse Ox O2 Delivery O2 Flow Rate FiO2 01/31/25 21:56 68 17 99 Room Air* 0 21 01/31/25 21:56 98.0 68 17 134/64 (87) 99 98.0 01/31/25 20:50 98.3 70 14 145/64 96 21 98.3 01/31/25 20:49 96 Room Air* 0 21 01/31/25 20:48 96 Room Air 0.0 01/31/25 19:57 68 11 98 Room Air* 0 21 01/31/25 19:55 98.3 68 11 156/62 (93) 98 98.3 01/31/25 19:30 156/62 01/31/25 19:00 73 13 158/75 (102) 97 01/31/25 18:00 67 12 148/76 (100) 97 01/31/25 17:00 71 17 143/87 (105) 98 Laboratory Tests Test 01/31/25 17:35 Lactic Acid Level 1.9 mmol/L (0.4-2.0) White Blood Count 11.0 10^3/uL (4.4-10.8) H Medications Medications Dose Ordered Sig/Griselda Route Start Time Stop Time Status Last Admin Dose Admin Acetaminophen/ Hydrocodone Bitart 1 tab Q4HP PRN PO 01/31/25 20:30 01/31/25 22:05 1 TAB Ciprofloxacin 200 ml @ 200 mls/hr ONCE ONCE IV 01/31/25 18:15 01/31/25 19:14 DC 01/31/25 19:30 200 MLS/HR Diagnostic Test (Pha) 1 strip Q6HR 02/01/25 00:00 01/31/25 22:57 1 STRIP Fentanyl Citrate 100 mcg ONCE ONCE IV 01/31/25 19:00 01/31/25 19:01 DC 01/31/25 19:30 100 MCG Insulin Human Regular Q6HR SC 02/01/25 00:00 01/31/25 22:58 3 UNITS Metronidazole 100 ml @ 100 mls/hr ONCE ONCE IV 01/31/25 18:15 01/31/25 19:14 DC 01/31/25 19:25 100 MLS/HR Ondansetron HCl 4 mg Q4HP PRN IV 01/31/25 20:30 01/31/25 22:04 4 MG Ondansetron HCl 8 mg ONCE ONCE IV 01/31/25 16:45 01/31/25 16:46 DC 01/31/25 17:51 8 MG Pantoprazole Sodium 40 mg ONCE ONCE IV 01/31/25 20:30 01/31/25 21:17 DC 01/31/25 22:04 40 MG Sodium Chloride 1,000 ml @ 1,000 mls/hr Q1H ONCE IV 01/31/25 16:45 01/31/25 17:44 DC 01/31/25 17:51 1,000 MLS/HR Assessment/Plan Assessment/Plan Assessment Acute abdominal pain Acute diverticulitis Hypertension Diabetes mellitus Plan Admit the patient to Med surge to the hospitalist GI consult Levaquin/Flagyl Clear liquid diet Pain management Resume home medications Continue treatment per orders. Plan discussed with: Patient My Orders Orders - CARMINA BAIG Procedure Category Date Status Time Admit ADMIT 01/31/25 Transmitted 19:56 Levofloxacin 500mg PHA 02/01/25 In Process (Levaquin 500mg/ 100m 10:00 Lisinopril Tablet PHA 02/01/25 In Process (Zestril Tablet) 10:00 Albuterol Medneb PHA 01/31/25 In Process (Ventolin Medneb) 20:30 * [facility] Drafter (Cad) Electronic CONS 01/31/25 Transmitted 20:28 Basic Metabolic Panel LAB 02/01/25 Logged 04:00 Pantoprazole PHA 02/01/25 In Process (Protonix) 10:00 Hydralazine Injection PHA 01/31/25 In Process (Apresoline Inject 20:30 Glucose Blood PHA 02/01/25 In Process (Accu-Chek Comfort 00:00 Insulin R (Human) PHA 02/01/25 In Process (Insulin R) 00:00 Dextrose 50% Syringe PHA 01/31/25 In Process 20:30 Hydrocodone-Acet PHA 01/31/25 In Process 5/325mg Tab ([place] 20:30 Ondansetron Hcl PHA 01/31/25 In Process (Zofran) 20:30 Complete Blood Count LAB 02/01/25 Logged 04:00 Condition: Stable ANDREW 01/31/25 In Process 20:28 Acetaminophen Tablet PHA 01/31/25 In Process (Tylenol Tablet) 20:30 Clear Liq Diet DIET 02/01/25 Transmitted Breakfast Bedrest With Bathroom ANDREW 01/31/25 In Process Privileg 20:28 Metronidazole PHA 02/01/25 In Process 500mg/100ml (Flagyl 06:00 Date of Service: Jan 31, 2025 Billing Provider: CARMINA BAIG Common Visit Codes: [id number] INP/OBS CARE (HIGH) CARMINA BAIG Feb 01, 2025 00:58
[2025-02-01 05:34] LABS: Hematocrit 36.0 % (36.0-46.0); Hemoglobin 12.0 g/dL (12.2-16.2); Mean Corpuscular Hemoglobin 30.8 pg (28.0-32.0); Mean Corpuscular Volume 92.2 fL (80.0-100.0); Nucleated Red Blood Cells % 0.0 %
[2025-02-01 05:44] LABS: Chloride 105 mmol/L (98-107); Sodium 141 mmol/L (136-145)
[2025-02-01 05:45] LABS: Anion Gap 9 (5-15); Carbon Dioxide 27 mmol/L (20-31)
[2025-02-01 05:49] LABS: Calcium 8.4 mg/dL (8.7-10.4); Potassium 3.3 mmol/L (3.5-5.1)
[2025-02-01 05:50] LABS: BUN/Creatinine Ratio 17.5 (10.0-20.0); Blood Urea Nitrogen 11 mg/dL (9-23); Glucose 111 mg/dL (74-106)
[2025-02-01] MEDS: LISINOPRIL 5 MG TAB PO SCH (10:00)
[2025-02-01] MEDS: PANTOPRAZOLE 40 MG/10 ML VIAL INJ IV SCH (10:19)
--- NOTE | 2025-02-01 10:37 | DVHPN2 ---
Subjective The patient is seen and examined at bedside. Complain of severe abdominal pain. No diarrhea. Reviewed: Care Plan, H&P, Labs, Medications, Previous Orders, Radiology Changes from previous H/P or p: No Changes Objective Vitals Vital Signs Date Time Temp Pulse Resp B/P (MAP) Pulse Ox O2 Delivery O2 Flow Rate FiO2 02/01/25 10:00 116/63 02/01/25 09:30 92 0.0 02/01/25 09:30 Room Air* 21 02/01/25 09:00 97.8 66 18 97.8 Intake/Output Intake and Output 02/01/25 07:00 Intake Total 1440 ml Balance 1440 ml Intake Oral 240 ml IV Total 1200 ml # Voids 4 # Bowel Movements 4 General Appearance: Alert, Oriented X3, Cooperative, No acute distress HEENT: Atraumatic, PERRLA, EOMI, Mucous membr. moist/pink Neck: Supple Lungs: Clear to auscultation, Normal air movement Cardiovascular: Regular rate, Normal S1, Normal S2, No murmurs, Gallops, Rubs Abdomen: Normal bowel sounds, Soft, No tenderness Neuro: Cranial nerves 3-12 NL Medications Current Medications Medications Dose Ordered Sig/Griselda Route Start Time Stop Time Status Last Admin Dose Admin Levofloxacin/ Dextrose 100 ml @ 100 mls/hr DAILY IV 02/01/25 10:00 02/01/25 10:20 100 MLS/HR Metronidazole 100 ml @ 100 mls/hr Q8HR IV 02/01/25 06:00 02/01/25 06:34 100 MLS/HR Lisinopril 10 mg DAILY PO 02/01/25 10:00 Albuterol 2.5 mg Q6HPRN PRN NEB 01/31/25 20:30 Pantoprazole Sodium 40 mg DAILY IV 02/01/25 10:00 02/01/25 10:19 40 MG Hydralazine HCl 10 mg Q6HP PRN IV 01/31/25 20:30 Diagnostic Test (Pha) 1 strip Q6HR 02/01/25 00:00 02/01/25 06:35 1 STRIP Insulin Human Regular Q6HR SC 02/01/25 00:00 01/31/25 22:58 3 UNITS Dextrose 50 ml UD PRN IV 01/31/25 20:30 Acetaminophen/ Hydrocodone Bitart 1 tab Q4HP PRN PO 01/31/25 20:30 02/01/25 10:36 1 TAB Ondansetron HCl 4 mg Q4HP PRN IV 01/31/25 20:30 01/31/25 22:04 4 MG Acetaminophen 650 mg Q6HP PRN PO 01/31/25 20:30 Laboratory Results Laboratory Tests 02/01/25 04:59 Chemistry Test 01/31/25 17:35 02/01/25 04:59 Albumin 4.2 g/dL (3.2-4.8) Calcium Level 9.1 mg/dL (8.7-10.4) 8.4 mg/dL (8.7-10.4) L Total Protein 6.6 g/dL (5.7-8.2) Lipid panel Test 01/31/25 17:35 Lipase 53 U/L (12-53) Cardiac Markers Test 01/31/25 17:35 B-Type Natriuretic Peptide 8.93 pg/mL (0-100) LFT Test 01/31/25 17:35 Alanine Aminotransferase (ALT) 45 U/L (7-40) H Alkaline Phosphatase 102 U/L (46-116) Aspartate Amino Transferase (AST) 33 U/L (13-40) Total Bilirubin 1.3 mg/dL (0.2-1.0) H Urinalysis Test 01/31/25 16:33 Urine Color Light-yellow (Yellow) Urine Clarity Clear (Clear) Urine pH 6.5 (5.0-9.0) Urine Specific [place] 1.016 (1.001-1.035) Urine Protein Trace (Negative) H Urine Ketones Negative (Negative) Urine Blood Negative /uL (Negative) Urine Nitrite Negative (Negative) Urine Bilirubin Negative (Negative) Urine Urobilinogen Normal mg/dL (Negative) Urine Leukocyte Esterase Negative /uL (Negative) Urine RBC <1 /hpf (0 - 4) Urine Microscopic WBC 5 /HPF (0-5) Urine Squamous Epithelial Cells Few /hpf (<5) Urine Bacteria None seen /hpf (None Seen) Urine Yeast (Budding) Occasional /hpf (None Urine Glucose Normal mg/dL (Normal) Labs and/or images reviewed: Labs reviewed by me Assessment/Plan Assessment/Plan Acute abdominal pain Acute diverticulitis Hypertension Diabetes mellitus Plan Continuing current management Waiting for GI consult Continuing Levaquin/Flagyl Continuing Clear liquid diet Pain management with IV morphine and [place] Continuing sliding scale insulin and Accu-Chek Resume home medications This medical document was created using an electronic medical record system with [employer] direct computerized dictation system. Although this document has been carefully reviewed, there may still be some phonetic and typographical errors. These areas are purely typographical due to imperfections of the software programs, and do not reflect any compromise in the patient's medical care. Plan discussed with: Patient Date of Service: Feb 01, 2025 Billing Provider: SKYLA PATEL MD Common Visit Codes: [id number] INP/OBS CARE(HIGH) SKYLA PATEL MD Feb 01, 2025 10:37
--- NOTE | 2025-02-01 14:31 | DVHINCON2 ---
GI Consult Consult Note GI consult note Date of Consultation: 02/01/2025 Chief Complaint: Diverticulitis Referring Physician: aDvey HITCHCOCK H&P: 74-year-old female admitted with abdominal pain diagnosed with diverticulitis. Patient is started with lower abdominal pain one day ago, had cramping sensation like she had to have a bowel movement and passed multiple episodes of red blood rectally. Improving abdominal pain at this. No fevers or chills. Status post colonoscopy five years ago diagnosed with diverticulosis Past Medical History: Diabetes mellitus, hypertension, GERD, diverticulitis Past Surgical History: Denies Social History: NO smoking, drinking ETOH and use of illegal drugs. Family History: Noncontributory Review of Systems: Constitutional: no fever, chill, weight loss HEENT: no eye pain, no hearing loss, no oral lesion, no scleral icterus Heart: no chest pain, no chest pressure Lung: no cough, no dyspnea with exertion Abdomen: see HPI Physical exam: General: NAD, AAOX3 Chest: lung ley clear to auscultation Heart: RRR, no murmur Abdomen: non-distended, no tenderness to palpation, +BS Labs: Labs Test 02/01/25 12:08 02/01/25 04:59 01/31/25 19:03 01/31/25 18:52 Range/Units POC Glucose 112 H 70-106 mg/dl White Blood Count 11.1 H 4.4-10.8 10^3/uL Red Blood Count 3.90 L 4.0-5.20 10^6/uL Hemoglobin 12.0 L 12.2-16.2 g/dL Hematocrit 36.0 # 36.0-46.0 % Mean Corpuscular Volume 92.2 80.0-100.0 fL Mean Corpuscular Hemoglobin 30.8 28.0-32.0 pg Mean Corpuscular Hemoglobin Concent 33.4 32.0-36.0 g/dL Red Cell Distribution Width 13.0 11.8-14.3 % Platelet Count 218 140-450 10^3/uL Mean Platelet Volume 7.5 6.9-10.8 fL Neutrophils (%) (Auto) 73.5 37.0-80.0 % Lymphocytes (%) (Auto) 18.2 10.0-50.0 % Monocytes (%) (Auto) 7.7 0.0-12.0 % Eosinophils (%) (Auto) 0.4 0.0-7.0 % Basophils (%) (Auto) 0.2 0.0-2.0 % Neutrophils # (Auto) 8.2 1.6-8.6 10 ^3/uL Lymphocytes # (Auto) 2.0 0.4-5.4 10 ^3/uL Monocytes # (Auto) 0.9 0-1.3 10 ^3/uL Eosinophils # (Auto) 0 0-0.8 10 ^3/uL Basophils # (Auto) 0 0-0.2 10 ^3/uL Nucleated Red Blood Cells 0.0 % Sodium Level 141 136-145 mmol/L Potassium Level 3.3 L 3.5-5.1 mmol/L Chloride Level 105 98-107 mmol/L Carbon Dioxide Level 27 20-31 mmol/L Anion Gap 9 5-15 Blood Urea Nitrogen 11 9-23 mg/dL Creatinine 0.63 0.550-1.02 mg/dL Glomerular Filtration Rate Calc 94 >90 mL/min BUN/Creatinine Ratio 17.5 10.0-20.0 Serum Glucose 111 H 74-106 mg/dL Calcium Level 8.4 L 8.7-10.4 mg/dL Stool Occult Blood Positive Negative Stool Occult Blood Sample #3 Negative Troponin I High Sensitivity 3 L </=34 ng/L Test 01/31/25 17:35 01/31/25 16:33 Range/Units Lactic Acid Level 1.9 0.4-2.0 mmol/L Total Bilirubin 1.3 H 0.2-1.0 mg/dL Aspartate Amino Transferase (AST) 33 13-40 U/L Alanine Aminotransferase (ALT) 45 H 7-40 U/L Alkaline Phosphatase 102 46-116 U/L B-Type Natriuretic Peptide 8.93 0-100 pg/mL Total Protein 6.6 5.7-8.2 g/dL Albumin 4.2 3.2-4.8 g/dL Lipase 53 12-53 U/L Urine Color Light-yellow Yellow Urine Clarity Clear Clear Urine pH 6.5 5.0-9.0 Urine Specific [place] 1.016 1.001-1.035 Urine Protein Trace H Negative Urine Ketones Negative Negative Urine Blood Negative Negative /uL Urine Nitrite Negative Negative Urine Bilirubin Negative Negative Urine Urobilinogen Normal Negative mg/dL Urine Leukocyte Esterase Negative Negative /uL Urine RBC <1 0 - 4 /hpf Urine Microscopic WBC 5 0-5 /HPF Urine Squamous Epithelial Cells Few <5 /hpf Urine Bacteria None seen None Seen /hpf Urine Yeast (Budding) Occasional None Seen /hpf Urine Glucose Normal Normal mg/dL Imaging: CT abdomen pelvis IMPRESSION: Acute diverticulitis at the distal descending colon. Normal appendix Assessment: Acute appendicitis GI bleed Abdominal pain improving Plan: Discussed with Dr. Cullen IV antibiotics Clear liquid diet Monitor Patient Plan discussed with patient and daughter at bedside Thank you for this consult Date of Service: Feb 01, 2025 Billing Provider: ZAIRE CARROLL Common Visit Codes: CONSULT ONLY Consultation Codes: [id number] CONSULT <60MIN ZAIRE CARROLL Feb 01, 2025 14:31
[2025-02-02] VITALS (9 sets, daily range): BP systolic 104–140; BP diastolic 50–90; PULSE 62–79; RESP 18–20; TEMP 97.6–98.1; O2SAT 94–98
[2025-02-02] MEDS: ACETAMINOPHEN 325 MG TAB PO PRN (04:34)
--- NOTE | 2025-02-02 12:54 | DVHPN2 ---
Subjective The patient is seen and examined at bedside. Still have abdominal pain. No diarrhea. Reviewed: Care Plan, H&P, Labs, Medications, Previous Orders, Radiology Changes from previous H/P or p: No Changes Objective Vitals Vital Signs Date Time Temp Pulse Resp B/P (MAP) Pulse Ox O2 Delivery O2 Flow Rate FiO2 02/02/25 10:00 121/63 02/02/25 09:00 97.8 62 20 96 97.8 02/02/25 08:01 Room Air 02/02/25 08:01 0 21 Intake/Output Intake and Output 02/02/25 07:00 Intake Total 1920 ml Balance 1920 ml Intake Oral 1520 ml IV Total 400 ml # Voids 7 # Bowel Movements 1 General Appearance: Alert, Oriented X3, Cooperative, No acute distress HEENT: Atraumatic, PERRLA, EOMI, Mucous membr. moist/pink Neck: Supple Lungs: Clear to auscultation, Normal air movement Cardiovascular: Regular rate, Normal S1, Normal S2, No murmurs, Gallops, Rubs Abdomen: Normal bowel sounds, Soft, No tenderness Neuro: Cranial nerves 3-12 NL Medications Current Medications Medications Dose Ordered Sig/Griselda Route Start Time Stop Time Status Last Admin Dose Admin Levofloxacin/ Dextrose 100 ml @ 100 mls/hr DAILY IV 02/01/25 10:00 02/02/25 11:52 100 MLS/HR Metronidazole 100 ml @ 100 mls/hr Q8HR IV 02/01/25 06:00 02/02/25 06:13 100 MLS/HR Lisinopril 10 mg DAILY PO 02/01/25 10:00 Albuterol 2.5 mg Q6HPRN PRN NEB 01/31/25 20:30 Pantoprazole Sodium 40 mg DAILY IV 02/01/25 10:00 02/02/25 11:53 40 MG Hydralazine HCl 10 mg Q6HP PRN IV 01/31/25 20:30 Diagnostic Test (Pha) 1 strip Q6HR 02/01/25 00:00 02/02/25 12:41 1 STRIP Insulin Human Regular Q6HR SC 02/01/25 00:00 01/31/25 22:58 3 UNITS Dextrose 50 ml UD PRN IV 01/31/25 20:30 Acetaminophen/ Hydrocodone Bitart 1 tab Q4HP PRN PO 01/31/25 20:30 02/01/25 17:48 1 TAB Ondansetron HCl 4 mg Q4HP PRN IV 01/31/25 20:30 01/31/25 22:04 4 MG Acetaminophen 650 mg Q6HP PRN PO 01/31/25 20:30 02/02/25 12:42 650 MG Laboratory Results Laboratory Tests 02/01/25 04:59 Urinalysis Test 01/31/25 16:33 Urine Color Light-yellow (Yellow) Urine Clarity Clear (Clear) Urine pH 6.5 (5.0-9.0) Urine Specific [place] 1.016 (1.001-1.035) Urine Protein Trace (Negative) H Urine Ketones Negative (Negative) Urine Blood Negative /uL (Negative) Urine Nitrite Negative (Negative) Urine Bilirubin Negative (Negative) Urine Urobilinogen Normal mg/dL (Negative) Urine Leukocyte Esterase Negative /uL (Negative) Urine RBC <1 /hpf (0 - 4) Urine Microscopic WBC 5 /HPF (0-5) Urine Squamous Epithelial Cells Few /hpf (<5) Urine Bacteria None seen /hpf (None Seen) Urine Yeast (Budding) Occasional /hpf (None Urine Glucose Normal mg/dL (Normal) Labs and/or images reviewed: Labs reviewed by me Assessment/Plan Assessment/Plan Acute abdominal pain Acute diverticulitis Hypertension Diabetes mellitus Plan Continuing current management Waiting for GI consult Continuing Levaquin/Flagyl Continuing Clear liquid diet Pain management with IV morphine and [place] Continuing sliding scale insulin and Accu-Chek Resume home medications This medical document was created using an electronic medical record system with [employer] direct computerized dictation system. Although this document has been carefully reviewed, there may still be some phonetic and typographical errors. These areas are purely typographical due to imperfections of the software programs, and do not reflect any compromise in the patient's medical care. Plan discussed with: Patient Date of Service: Feb 02, 2025 Billing Provider: SKYLA PATEL MD Common Visit Codes: [id number] INP/OBS CARE(HIGH) SKYLA PATEL MD Feb 02, 2025 12:54
--- NOTE | 2025-02-02 13:01 | DVHPN2 ---
Progress Note - Dictate Date Seen: Feb 02, 2025 Medical Necessity Reason Pt with a Central, PICC or Fol: No Subjective No new complaints, patient is saturating well on room air She is awake alert with no significant pain or distress She has had about 4-5 bowel movements since yesterday Patient had a history of rectal bleeding vital signs Vital Sign Date Time Temp Pulse Resp B/P (MAP) Pulse Ox O2 Delivery O2 Flow Rate FiO2 02/02/25 10:00 121/63 02/02/25 09:00 97.8 62 20 96 97.8 02/02/25 08:01 Room Air 02/02/25 08:01 0 21 Total Intake and Output 02/01/25 02/01/25 02/02/25 15:00 23:00 07:00 Intake Total 820 ml 600 ml 500 ml Balance 820 ml 600 ml 500 ml medications Current Medications Medications Dose Ordered Sig/Griselda Route Start Time Stop Time Status Last Admin Dose Admin Levofloxacin/ Dextrose 100 ml @ 100 mls/hr DAILY IV 02/01/25 10:00 02/02/25 11:52 100 MLS/HR Metronidazole 100 ml @ 100 mls/hr Q8HR IV 02/01/25 06:00 02/02/25 06:13 100 MLS/HR Lisinopril 10 mg DAILY PO 02/01/25 10:00 Albuterol 2.5 mg Q6HPRN PRN NEB 01/31/25 20:30 Pantoprazole Sodium 40 mg DAILY IV 02/01/25 10:00 02/02/25 11:53 40 MG Hydralazine HCl 10 mg Q6HP PRN IV 01/31/25 20:30 Diagnostic Test (Pha) 1 strip Q6HR 02/01/25 00:00 02/02/25 12:41 1 STRIP Insulin Human Regular Q6HR SC 02/01/25 00:00 01/31/25 22:58 3 UNITS Dextrose 50 ml UD PRN IV 01/31/25 20:30 Acetaminophen/ Hydrocodone Bitart 1 tab Q4HP PRN PO 01/31/25 20:30 02/01/25 17:48 1 TAB Ondansetron HCl 4 mg Q4HP PRN IV 01/31/25 20:30 01/31/25 22:04 4 MG Acetaminophen 650 mg Q6HP PRN PO 01/31/25 20:30 02/02/25 12:42 650 MG objective General: NAD, AAOX3 Chest: lung ley clear to auscultation Heart: RRR, no murmur Abdomen: non-distended, no tenderness to palpation, +BS laboratory and microbiology Laboratory Tests 02/01/25 04:59 Test 02/01/25 04:59 Range/Units Serum Glucose 111 H 74-106 mg/dL Problems(with codes): (1) Diverticulosis (2) Abnormal finding on GI tract imaging (3) Acute diverticulitis (4) Lower GI bleed (5) Cholelithiasis Prognosis Plan Differential diagnosis include diverticulitis versus segmental ischemic colitis with underlying atherosclerosis Continue conservative management, advance to full liquid diet once bleeding resolves Continue IV antibiotics, continue to monitor labs, hemoglobin stable at 12 today Patient may benefit from repeat colonoscopy once acute episode resolves I will follow up patient with you Plan discussed with: Other (Aleta Wilks) MICHAEL MERCEDES MD Feb 02, 2025 13:01
[2025-02-03] VITALS (10 sets, daily range): BP systolic 124–144; BP diastolic 64–81; PULSE 63–77; RESP 17–20; TEMP 97.5–98.1; O2SAT 84–96
[2025-02-03 06:11] LABS: Hematocrit 33.4 % (36.0-46.0); Hemoglobin 11.3 g/dL (12.2-16.2); Mean Corpuscular Hemoglobin 31.2 pg (28.0-32.0); Mean Corpuscular Volume 91.9 fL (80.0-100.0); Nucleated Red Blood Cells % 0.0 %
[2025-02-03 06:23] LABS: Anion Gap 9 (5-15); Calcium 8.8 mg/dL (8.7-10.4); Carbon Dioxide 30 mmol/L (20-31); Chloride 106 mmol/L (98-107)
[2025-02-03 06:35] LABS: BUN/Creatinine Ratio 8.5 (10.0-20.0); Blood Urea Nitrogen < 5 mg/dL (9-23); Glucose 115 mg/dL (74-106); Potassium 3.3 mmol/L (3.5-5.1); Sodium 145 mmol/L (136-145)
--- NOTE | 2025-02-03 13:24 | DVHPN2 ---
Subjective The patient is seen and examined at bedside. Still have abdominal pain. No diarrhea. The patient states she drink coffee today and feel nausea with heart palpation after that. She drink the regular coffee instead of decaf like home coffee. Reviewed: Care Plan, H&P, Labs, Medications, Previous Orders, Radiology Changes from previous H/P or p: No Changes Objective Vitals Vital Signs Date Time Temp Pulse Resp B/P (MAP) Pulse Ox O2 Delivery O2 Flow Rate FiO2 02/03/25 12:30 98.0 71 20 136/75 (95) 84 98.0 02/03/25 06:40 Room Air* 0 21 Intake/Output Intake and Output 02/03/25 07:00 Intake Total 2020 ml Balance 2020 ml Intake Oral 1820 ml IV Total 200 ml # Voids 8 General Appearance: Alert, Oriented X3, Cooperative, No acute distress HEENT: Atraumatic, PERRLA, EOMI, Mucous membr. moist/pink Neck: Supple Lungs: Clear to auscultation, Normal air movement Cardiovascular: Regular rate, Normal S1, Normal S2, No murmurs, Gallops, Rubs Abdomen: Normal bowel sounds, Soft, No tenderness Neuro: Cranial nerves 3-12 NL Medications Current Medications Medications Dose Ordered Sig/Griselda Route Start Time Stop Time Status Last Admin Dose Admin Levofloxacin/ Dextrose 100 ml @ 100 mls/hr DAILY IV 02/01/25 10:00 02/03/25 10:46 100 MLS/HR Metronidazole 100 ml @ 100 mls/hr Q8HR IV 02/01/25 06:00 02/03/25 06:09 100 MLS/HR Lisinopril 10 mg DAILY PO 02/01/25 10:00 02/03/25 10:53 10 MG Albuterol 2.5 mg Q6HPRN PRN NEB 01/31/25 20:30 Pantoprazole Sodium 40 mg DAILY IV 02/01/25 10:00 02/03/25 10:46 40 MG Hydralazine HCl 10 mg Q6HP PRN IV 01/31/25 20:30 Diagnostic Test (Pha) 1 strip Q6HR 02/01/25 00:00 02/03/25 12:26 1 STRIP Insulin Human Regular Q6HR SC 02/01/25 00:00 01/31/25 22:58 3 UNITS Dextrose 50 ml UD PRN IV 01/31/25 20:30 Acetaminophen/ Hydrocodone Bitart 1 tab Q4HP PRN PO 01/31/25 20:30 02/01/25 17:48 1 TAB Ondansetron HCl 4 mg Q4HP PRN IV 01/31/25 20:30 01/31/25 22:04 4 MG Acetaminophen 650 mg Q6HP PRN PO 01/31/25 20:30 02/03/25 12:42 650 MG Laboratory Results Laboratory Tests 02/03/25 05:14 Chemistry Test 02/03/25 05:14 Calcium Level 8.8 mg/dL (8.7-10.4) Urinalysis Test 01/31/25 16:33 Urine Color Light-yellow (Yellow) Urine Clarity Clear (Clear) Urine pH 6.5 (5.0-9.0) Urine Specific [place] 1.016 (1.001-1.035) Urine Protein Trace (Negative) H Urine Ketones Negative (Negative) Urine Blood Negative /uL (Negative) Urine Nitrite Negative (Negative) Urine Bilirubin Negative (Negative) Urine Urobilinogen Normal mg/dL (Negative) Urine Leukocyte Esterase Negative /uL (Negative) Urine RBC <1 /hpf (0 - 4) Urine Microscopic WBC 5 /HPF (0-5) Urine Squamous Epithelial Cells Few /hpf (<5) Urine Bacteria None seen /hpf (None Seen) Urine Yeast (Budding) Occasional /hpf (None Urine Glucose Normal mg/dL (Normal) Labs and/or images reviewed: Labs reviewed by me Assessment/Plan Assessment/Plan Acute abdominal pain Acute diverticulitis Hypertension Diabetes mellitus Report heart palpitation. Review vital sign show normal heart rate at 60-70 Plan Continuing current management Waiting for GI consult Continuing Levaquin/Flagyl Continuing Clear liquid diet Pain management with IV morphine and [place] Continuing sliding scale insulin and Accu-Chek Resume home medications Advise not drinking regular coffee if she doesn't drink them often.. Discharge planning. This medical document was created using an electronic medical record system with [employer] direct computerized dictation system. Although this document has been carefully reviewed, there may still be some phonetic and typographical errors. These areas are purely typographical due to imperfections of the software programs, and do not reflect any compromise in the patient's medical care. Plan discussed with: Patient My Orders Orders - SKYLA PATEL MD Procedure Category Date Status Time Full Liq Diet DIET 02/02/25 Transmitted Dinner Complete Blood Count LAB 02/04/25 Verified 05:00 Complete Blood Count LAB 02/05/25 Verified 05:00 Complete Blood Count LAB 02/06/25 Verified 05:00 Complete Blood Count LAB 02/07/25 Verified 05:00 Basic Metabolic Panel LAB 02/04/25 Verified 05:00 Basic Metabolic Panel LAB 02/05/25 Verified 05:00 Basic Metabolic Panel LAB 02/06/25 Verified 05:00 Basic Metabolic Panel LAB 02/07/25 Verified 05:00 Date of Service: Feb 03, 2025 Billing Provider: SKYLA PATEL MD Common Visit Codes: [id number] INP/OBS CARE(HIGH) SKYLA PATEL MD Feb 03, 2025 13:24
[2025-02-04 01:00] VITALS: BP 125/73; PULSE 72; RESP 16; TEMP 97.6; O2SAT 95
[2025-02-04 05:00] VITALS: BP 129/72; PULSE 96; RESP 17; TEMP 97.8; O2SAT 97
[2025-02-04 06:33] VITALS: O2SAT 97
[2025-02-04 07:39] LABS: Anion Gap 7 (5-15); Carbon Dioxide 30 mmol/L (20-31); Potassium 3.6 mmol/L (3.5-5.1)
[2025-02-04 07:40] LABS: Calcium 8.8 mg/dL (8.7-10.4)
[2025-02-04 07:47] LABS: BUN/Creatinine Ratio 7.9 (10.0-20.0); Blood Urea Nitrogen < 5 mg/dL (9-23); Chloride 108 mmol/L (98-107); Glucose 111 mg/dL (74-106); Sodium 145 mmol/L (136-145)
[2025-02-04 07:54] LABS: Hematocrit 34.6 % (36.0-46.0); Hemoglobin 11.9 g/dL (12.2-16.2); Mean Corpuscular Hemoglobin 31.2 pg (28.0-32.0); Mean Corpuscular Volume 91.1 fL (80.0-100.0); Nucleated Red Blood Cells % 0.1 %
[2025-02-04 09:00] VITALS: BP 135/70; PULSE 76; RESP 20; TEMP 98.1; O2SAT 93
[2025-02-04 13:00] VITALS: BP 132/79; PULSE 81; RESP 21; TEMP 97.8; O2SAT 96
--- NOTE | 2025-02-04 14:46 | DVHPN2 ---
Subjective The patient is seen and examined at bedside. Still have abdominal pain. No diarrhea. The patient states she drink coffee today and feel nausea with heart palpation after that. She drink the regular coffee instead of decaf like home coffee. Reviewed: Care Plan, H&P, Labs, Medications, Previous Orders, Radiology Objective Vitals Vital Signs Date Time Temp Pulse Resp B/P (MAP) Pulse Ox O2 Delivery O2 Flow Rate FiO2 02/04/25 10:38 98.4 02/04/25 09:00 76 20 135/70 (91) 93 02/04/25 08:05 Room Air* 0 21 Intake/Output Intake and Output 02/04/25 07:00 Intake Total 2880 ml Balance 2880 ml Intake Oral 2580 ml IV Total 300 ml # Voids 13 General Appearance: Alert, Oriented X3, Cooperative, No acute distress HEENT: Atraumatic, PERRLA, EOMI, Mucous membr. moist/pink Neck: Supple Lungs: Clear to auscultation, Normal air movement Cardiovascular: Regular rate, Normal S1, Normal S2, No murmurs, Gallops, Rubs Abdomen: Normal bowel sounds, Soft, No tenderness Neuro: Cranial nerves 3-12 NL Medications Current Medications Medications Dose Ordered Sig/Griselda Route Start Time Stop Time Status Last Admin Dose Admin Levofloxacin/ Dextrose 100 ml @ 100 mls/hr DAILY IV 02/01/25 10:00 02/04/25 09:37 100 MLS/HR Metronidazole 100 ml @ 100 mls/hr Q8HR IV 02/01/25 06:00 02/04/25 13:53 100 MLS/HR Lisinopril 10 mg DAILY PO 02/01/25 10:00 02/03/25 10:53 10 MG Albuterol 2.5 mg Q6HPRN PRN NEB 01/31/25 20:30 Pantoprazole Sodium 40 mg DAILY IV 02/01/25 10:00 02/04/25 09:38 40 MG Hydralazine HCl 10 mg Q6HP PRN IV 01/31/25 20:30 Diagnostic Test (Pha) 1 strip Q6HR 02/01/25 00:00 02/04/25 11:59 1 STRIP Insulin Human Regular Q6HR SC 02/01/25 00:00 02/03/25 17:48 3 UNITS Dextrose 50 ml UD PRN IV 01/31/25 20:30 Acetaminophen/ Hydrocodone Bitart 1 tab Q4HP PRN PO 01/31/25 20:30 02/01/25 17:48 1 TAB Ondansetron HCl 4 mg Q4HP PRN IV 01/31/25 20:30 01/31/25 22:04 4 MG Acetaminophen 650 mg Q6HP PRN PO 01/31/25 20:30 02/04/25 09:38 650 MG Laboratory Results Laboratory Tests 02/04/25 06:36 Chemistry Test 02/04/25 06:36 Calcium Level 8.8 mg/dL (8.7-10.4) Urinalysis Test 01/31/25 16:33 Urine Color Light-yellow (Yellow) Urine Clarity Clear (Clear) Urine pH 6.5 (5.0-9.0) Urine Specific [place] 1.016 (1.001-1.035) Urine Protein Trace (Negative) H Urine Ketones Negative (Negative) Urine Blood Negative /uL (Negative) Urine Nitrite Negative (Negative) Urine Bilirubin Negative (Negative) Urine Urobilinogen Normal mg/dL (Negative) Urine Leukocyte Esterase Negative /uL (Negative) Urine RBC <1 /hpf (0 - 4) Urine Microscopic WBC 5 /HPF (0-5) Urine Squamous Epithelial Cells Few /hpf (<5) Urine Bacteria None seen /hpf (None Seen) Urine Yeast (Budding) Occasional /hpf (None Urine Glucose Normal mg/dL (Normal) Assessment/Plan Assessment/Plan Acute abdominal pain Acute diverticulitis Hypertension Diabetes mellitus Report heart palpitation. Review vital sign show normal heart rate at 60-70 Plan Continuing current management Waiting for GI consult Continuing Levaquin/Flagyl Continuing Clear liquid diet Pain management with IV morphine and [place] Continuing sliding scale insulin and Accu-Chek Resume home medications Advise not drinking regular coffee if she doesn't drink them often.. Discharge planning. This medical document was created using an electronic medical record system with [employer] direct computerized dictation system. Although this document has been carefully reviewed, there may still be some phonetic and typographical errors. These areas are purely typographical due to imperfections of the software programs, and do not reflect any compromise in the patient's medical care. SKYLA PATEL MD Feb 04, 2025 14:46
[2025-02-04] MEDS ORDERED: METR-344 PO (15:57)
[2025-02-04] MEDS ORDERED: LEVO500T91 PO (15:57)
--- NOTE | 2025-02-04 15:59 | DVHDS2 ---
Discharge Summary Date of Admission Jan 31, 2025 at 19:56 Date of Discharge: Feb 04, 2025 Admitting Diagnosis Acute abdominal pain Acute diverticulitis Hypertension Diabetes mellitus Report heart palpitation. Review vital sign show normal heart rate at 60-70 Labs/Diagnostic Data: Laboratory Results Test 02/04/25 11:48 02/04/25 06:36 01/31/25 19:03 01/31/25 18:52 POC Glucose 136 mg/dl (70-106) White Blood Count 5.7 10^3/uL (4.4-10.8) Red Blood Count 3.80 10^6/uL (4.0-5.20) Hemoglobin 11.9 g/dL (12.2-16.2) Hematocrit 34.6 % (36.0-46.0) Mean Corpuscular Volume 91.1 fL (80.0-100.0) Mean Corpuscular Hemoglobin 31.2 pg (28.0-32.0) Mean Corpuscular Hemoglobin Concent 34.3 g/dL (32.0-36.0) Red Cell Distribution Width 12.9 % (11.8-14.3) Platelet Count 235 10^3/uL (140-450) Mean Platelet Volume 7.9 fL (6.9-10.8) Neutrophils (%) (Auto) 47.5 % (37.0-80.0) Lymphocytes (%) (Auto) 41.5 % (10.0-50.0) Monocytes (%) (Auto) 8.6 % (0.0-12.0) Eosinophils (%) (Auto) 2.0 % (0.0-7.0) Basophils (%) (Auto) 0.4 % (0.0-2.0) Neutrophils # (Auto) 2.7 10 ^3/uL (1.6-8.6) Lymphocytes # (Auto) 2.4 10 ^3/uL (0.4-5.4) Monocytes # (Auto) 0.5 10 ^3/uL (0-1.3) Eosinophils # (Auto) 0.1 10 ^3/uL (0-0.8) Basophils # (Auto) 0 10 ^3/uL (0-0.2) Nucleated Red Blood Cells 0.1 % Sodium Level 145 mmol/L (136-145) Potassium Level 3.6 mmol/L (3.5-5.1) Chloride Level 108 mmol/L (98-107) Carbon Dioxide Level 30 mmol/L (20-31) Anion Gap 7 (5-15) Blood Urea Nitrogen < 5 mg/dL (9-23) Creatinine 0.63 mg/dL (0.550-1.02) Glomerular Filtration Rate Calc 94 mL/min (>90) BUN/Creatinine Ratio 7.9 (10.0-20.0) Serum Glucose 111 mg/dL (74-106) Calcium Level 8.8 mg/dL (8.7-10.4) Stool Occult Blood Positive (Negative) Stool Occult Blood Sample #3 (Negative) Troponin I High Sensitivity 3 ng/L (</=34) Test 01/31/25 17:35 01/31/25 16:33 Lactic Acid Level 1.9 mmol/L (0.4-2.0) Total Bilirubin 1.3 mg/dL (0.2-1.0) Aspartate Amino Transferase (AST) 33 U/L (13-40) Alanine Aminotransferase (ALT) 45 U/L (7-40) Alkaline Phosphatase 102 U/L (46-116) B-Type Natriuretic Peptide 8.93 pg/mL (0-100) Total Protein 6.6 g/dL (5.7-8.2) Albumin 4.2 g/dL (3.2-4.8) Lipase 53 U/L (12-53) Urine Color Light-yellow (Yellow) Urine Clarity Clear (Clear) Urine pH 6.5 (5.0-9.0) Urine Specific [place] 1.016 (1.001-1.035) Urine Protein Trace (Negative) Urine Ketones Negative (Negative) Urine Blood Negative /uL (Negative) Urine Nitrite Negative (Negative) Urine Bilirubin Negative (Negative) Urine Urobilinogen Normal mg/dL (Negative) Urine Leukocyte Esterase Negative /uL (Negative) Urine RBC <1 /hpf (0 - 4) Urine Microscopic WBC 5 /HPF (0-5) Urine Squamous Epithelial Cells Few /hpf (<5) Urine Bacteria None seen /hpf (None Seen) Urine Yeast (Budding) Occasional /hpf (None Urine Glucose Normal mg/dL (Normal) Other Laboratory Tests 02/04/25 06:36 Brief Hx & Hospital Course: This is a 74 years old female came to emergency department because of intractable nausea and vomiting and abdominal pain. The patient denied any fever or chills denied any diarrhea. The patient's CT scan abdomen and pelvis showed:Acute diverticulitis at the distal descending colon. Normal appendix. The patient was started on IV antibiotic with Flagyl and Levaquin. The patient tolerated IV antibiotics well. Patient continuing to have abdominal pain. Trial of clear liquid and full liquid seen was given. The patient able to tolerate it. Abdominal pain improved. I am going to discharge her home today. Advised the patient to follow up with primary care physician 1-2 weeks. Follow up with GI specialist three months to six months after diverticulitis was treated for outpatient elective colonoscopy. Activity as tolerated. Diet per home diet. Physical exam: HEENT: Normocephalic atraumatic pupils equal react to light and accommodation. Extraocular muscles intact, conjunctiva pink, oropharynx moist, no thrush, no exudate. Lymphatic: No lymphadenopathy Cardiovascular exam: S1, S2 was heard. No murmurs, rubs, gallops Lung: Clear on auscultation bilaterally, no wheeze, rale, rhonchi. GI: Abdominal soft, nondistended, nontenderness, positive bowel sounds. Extremity: No crepitus, cyanosis, edema. Pedal pulses present bilateral. Full range of motion. Skin: Normal turgor, no rash. Psych: Alert, oriented x3. Neurology: No focal deficits, cranial nerve II to XII grossly intact. This medical document was created using an electronic medical record system with [employer] direct computerized dictation system. Although this document has been carefully reviewed, there may still be some phonetic and typographical errors. These areas are purely typographical due to imperfections of the software programs, and do not reflect any compromise in the patient's medical care. Condition at Discharge: Stable Final Diagnosis/Problems List Acute abdominal pain Acute diverticulitis Hypertension Diabetes mellitus Report heart palpitation. Review vital sign show normal heart rate at 60-70 Discharge Disposition: Home Discharge Instruct/Medications Diet: Consistent carbohydrate Activity: No Restrictions, As Tolerated Follow Up/Referral: pcp 1-2 weeks Medications: see med list Scheduled Albuterol Sulfate (Albuterol Sulfate Hfa), 1 PUFF INH Q4HR PRN, (Reported) Cetirizine HCl (Cetirizine Hydrochloride), 1 TAB PO DAILY PRN, (Reported) Ciprofloxacin Hcl (Cipro), 1 TAB PO BID Fluticasone Propionate (Nasal) (Fluticasone Propionate), 2 SPRAY MEGA DAILY, (Reported) Lansoprazole (Lansoprazole Dr), 1 CAP PO DAILY, (Reported) Levofloxacin Hemihydrate (Levaquin 500 Mg), 1 TAB PO DAILY Lisinopril (Lisinopril), 1 TAB PO DAILY, (Reported) Metronidazole (Flagyl), 1 TAB PO TID Nabumetone (Nabumetone), 1 TAB PO BID, (Reported) Semaglutide (Ozempic), 0.5 MG SC QWEEKLY, (Reported) Semaglutide (Ozempic), 0.5 MG SC QWEEKLY, (Reported) Timolol Maleate (Ophth) (Timolol Maleate), 1 DROP EACHEYE QAM, (Reported) Discontinued Medications Ezetimibe-Simvastatin (Ezetimibe/Simvastatin 10-20 mg), 1 TAB PO DAILY, (Reported) Discharge Statement: "Patient was advised to return to the ER or call 911 if any headaches, dizziness, shortness of breath, chest pain, abdominal pain, bleeding, fevers, or worsening of medical condition. Patient was counseled about treatment plan, medications, possible side effects, patientverbalized understanding. All questions were answered to the best of my ability. This discharge took greater then 30 minutes in planning, reviewing documentation, counseling the patient, and discussing with other team members." ASSESSMENT ASSESSMENT Assessment diverticulitis Date of Service: Feb 04, 2025 Billing Provider: SKYLA PATEL MD Common Visit Codes: [id number] DISCH DAY >30min SKYLA PATEL MD Feb 04, 2025 15:58
[2025-02-04 17:00] VITALS: BP_SYST 133; BP_SYST 144; BP_DIAS 7; BP_DIAS 81; PULSE 76; PULSE 81; RESP 19; RESP 20; TEMP 98; TEMP 98.4; O2SAT 94; O2SAT 96
== END 2025-02-04 18:19 | disposition home or self-care (01) | DRG 379 ==
LOC: ER 16:31 → OVERFLOW 19:56 → WEST WING 19:56
PROVIDERS: ADMIT Internal Medicine; ATTEND Internal Medicine
DX: K57.33 Diverticulitis of large intestine without perforation or abscess with bleeding (principal); E11.9 Type 2 diabetes mellitus without complications; I10 Essential (primary) hypertension; K21.9 Gastro-esophageal reflux disease without esophagitis; E78.5 Hyperlipidemia, unspecified; I95.9 Hypotension, unspecified; Z88.1 Allergy status to other antibiotic agents; Z79.899 Other long term (current) drug therapy
CPT/HCPCS: 36415; 74176; 80048; 80053; 81001; 82270; 82962; 83605; 83690; 83880; 84484; 85025; 93005; 96365; 96375; G0378; J1815; J1956; J2405; J2470; J3490